=== PATIENT | male | born 1940 | race Caucasian/White ===

== ENCOUNTER 2017-03-29 19:20 | Emergency (ER) | payer OTHER ==
[~2017-03-29] VITALS: Ht 180.3 cm; Wt 92.9 kg
[~2017-03-29 19:20] MED LIST: ASPI-621 PO; CIPR500T87 PO; DAPT500V6 IV; DOCU-131 PO; FINA5TAB4 PO; METO25TA35 PO; OMEG-14 PO; OXYC-306 PO; SIMV40TA3 PO; TAMS-11 PO; TAMS0.4C2 PO
[2017-03-29] MEDS ORDERED: CHOLESTROL MED (20:15)
[2017-03-29] MEDS ORDERED: KETOROLAC 30 MG/1 ML IM ONE (21:00)
[2017-03-29] MEDS ORDERED: KETOROLAC 30 MG/1 ML ONE (21:24)
[2017-03-29 22:48] VITALS: BP 165/84
== END 2017-03-29 22:50 | disposition home or self-care (01) ==
LOC: ED 20:41
DX: S33.5XXA Sprain of ligaments of lumbar spine, initial encounter (principal); S16.1XXA Strain of muscle, fascia and tendon at neck level, initial encounter; Z87.891 Personal history of nicotine dependence; V49.40XA Driver injured in collision with unspecified motor vehicles in traffic accident, initial encounter; Y93.89 Activity, other specified; Y92.488 Other paved roadways as the place of occurrence of the external cause; Y99.8 Other external cause status
CPT/HCPCS: 72110; 72125; 96372; 99284; J1885

== ENCOUNTER → 2018-03-10 | Outpatient (CLI) | payer OTHER ==
[~2018-03-10] MED LIST changes: +CHOLESTROL MED
== END | disposition home or self-care (01) ==
LOC: CFH 12:37
PROVIDERS: ATTEND Nurse Practitioner Family
DX: Z12.2 Encounter for screening for malignant neoplasm of respiratory organs (principal); M51.36 Other intervertebral disc degeneration, lumbar region; M48.061 Spinal stenosis, lumbar region without neurogenic claudication; M48.02 Spinal stenosis, cervical region; K76.89 Other specified diseases of liver; Z87.891 Personal history of nicotine dependence
CPT/HCPCS: 72131; G0297

== ENCOUNTER 2018-08-15 09:41 | Outpatient (CLI) | payer MEDICARE ==
[~2018-08-15 09:41] MED LIST changes: -ASPI-621 PO; +ASPI81TA45 PO
== END 2018-08-15 23:59 | disposition home or self-care (01) ==
LOC: CFH 09:41
PROVIDERS: ATTEND Nurse Practitioner Family
DX: I71.4 Abdominal aortic aneurysm, without rupture (principal); F17.211 Nicotine dependence, cigarettes, in remission
CPT/HCPCS: 76706

== ENCOUNTER → 2019-03-24 | Outpatient (CLI) | payer MEDICARE ==
[~2019-03-24] MED LIST changes: +CYCL5TAB PO; +HYDR-3237 PO; +HYDR-36 PO; +SIMV10TA3 PO; +TESTOSTERONE INJ INJ; +anxiety medication PO
== END | disposition home or self-care (01) ==
LOC: RAD 15:25
PROVIDERS: ATTEND Neurological Surgery
DX: M47.816 Spondylosis without myelopathy or radiculopathy, lumbar region (principal); M48.061 Spinal stenosis, lumbar region without neurogenic claudication
CPT/HCPCS: 72110

== ENCOUNTER → 2019-10-30 | Outpatient (CLI) | payer MEDICARE ==
[~2019-10-30] MED LIST changes: +HYDR-3246 PO; -HYDR-36 PO; +SIMV10TA18 PO; -SIMV10TA3 PO; +SIMV40TA20 PO; -SIMV40TA3 PO
== END | disposition home or self-care (01) ==
LOC: MERGE 11:02 → RAD 11:02
PROVIDERS: ATTEND Neurological Surgery
DX: M47.816 Spondylosis without myelopathy or radiculopathy, lumbar region (principal); M54.5 Low back pain
CPT/HCPCS: 72110

== ENCOUNTER → 2019-12-28 | Outpatient (CLI) | payer MEDICARE | END | disposition home or self-care (01) | LOC: STAR 15:03 | PROVIDERS: ATTEND Anesthesiology | DX: Z02.9 Encounter for administrative examinations, unspecified (principal) ==

== ENCOUNTER 2020-03-08 11:38 | Emergency (ER) | payer MEDICARE ==
[~2020-03-08] VITALS: Ht 180.3 cm; Wt 103.0 kg
--- NOTE | 2020-03-08 12:13 | NUR ---
PT AMBULATED TO RESTROOM WITH STEADY GAIT TO PROVIDE URINE SAMPLE. UA ORDERED PER PROTOCOL AND SENT TO LAB. SON AT BEDSIDE.
[2020-03-08 12:47] LABS: MICROSCOPIC INDICATED
[2020-03-08 13:09] LABS: BASOPHILS % (AUTO) 1 % (0-1); EOSINOPHILS % (AUTO) 0 % (1-7); LYMPHOCYTES % (AUTO) 14 % (22-44); MEAN PLATELET VOLUME 6.9 fL (7.4-10.4); MONOCYTES % (AUTO) 10 % (2-9); NEUTROPHILS % (AUTO) 75 % (42-75); PLATELET COUNT 289 x10^3/uL (130-400); RED BLOOD COUNT 4.91 x10^6/uL (4.38-5.82); RED CELL DISTRIBUTION WIDTH 13.8 % (9.4-14.8)
[2020-03-08 13:10] LABS: MD NO
--- NOTE | 2020-03-08 13:12 | NUR ---
BLADDER SCAN SHOWED ABOUT 70ML IN BLADDER.
[2020-03-08 13:21] LABS: ALANINE AMINOTRANSFERASE 33 U/L (12-78); ALBUMIN 4.1 g/dL (3.4-5.0); ANION GAP 9 mmol/L (5-15); CALCIUM 8.6 mg/dL (8.5-10.1); CHLORIDE 96 mmol/L (98-107); CREATININE 0.98 mg/dL (0.7-1.3)
[2020-03-08 13:23] LABS: ALKALINE PHOSPHATASE 93 U/L (45-117); BILIRUBIN,TOTAL 0.7 mg/dL (0.2-1.0); TOTAL PROTEIN 7.9 g/dL (6.4-8.2)
--- NOTE | 2020-03-08 14:16 | NUR ---
PROVIDER AT BEDSIDE TO UPDATE PT ON POC.
[2020-03-08 14:30] VITALS: BP 136/84
== END 2020-03-08 15:08 | disposition home or self-care (01) ==
LOC: ED 12:38
DX: E87.1 Hypo-osmolality and hyponatremia (principal); R31.9 Hematuria, unspecified; I10 Essential (primary) hypertension; E78.5 Hyperlipidemia, unspecified; E87.5 Hyperkalemia
CPT/HCPCS: 36415; 80053; 81001; 85025; 87086; 99284

== ENCOUNTER 2020-05-22 14:47 | Outpatient (CLI) | payer MEDICARE, OTHER ==
[~2020-05-22 14:47] MED LIST changes: -HYDR-3246 PO; +HYDR-3248 PO; -OXYC-306 PO; +OXYC1TAB17 PO
== END 2020-05-22 23:59 | disposition home or self-care (01) ==
LOC: CFH 14:47
PROVIDERS: ATTEND Family Medicine
DX: Z12.2 Encounter for screening for malignant neoplasm of respiratory organs (principal); Z87.891 Personal history of nicotine dependence; K76.89 Other specified diseases of liver
CPT/HCPCS: 71271

== ENCOUNTER 2020-10-20 10:49 | Inpatient (IN) | payer MEDICARE ==
[~2020-10-20] VITALS: Ht 180.3 cm; Wt 111.5 kg
--- NOTE | 2020-10-20 11:10 | NUR ---
Noted pt ambulating from triage to room with steady gait. Changing into gown after stopping by restroom first.
--- NOTE | 2020-10-20 11:23 | NUR ---
PA and RN assessments completed. Pt placed on continuous EKG/bedside monitoring with call light in reach. Warm blanket offered and declined at this time. Daughter in law at bedside with pt.
[2020-10-20] MEDS ORDERED: LOSA50TA14 PO (11:32)
[2020-10-20] MEDS ORDERED: TEST200V3 IM (11:32)
[2020-10-20] MEDS ORDERED: SIMV20TA19 PO (11:32)
[2020-10-20] MEDS ORDERED: HYDROCHLOROTH12.5 MG PO (11:32)
--- NOTE | 2020-10-20 12:01 | NUR ---
PCXR results reviewed. Awaiting lab results at this time. VS reassessed.
[2020-10-20 12:07] LABS: BASOPHILS % (AUTO) 1 % (0-1); EOSINOPHILS % (AUTO) 0 % (1-7); LYMPHOCYTES % (AUTO) 11 % (22-44); MEAN CORPUSCULAR HEMOGLOBIN 31.7 pg (27.5-34.5); MEAN CORPUSCULAR HGB CONC 33.9 g/dL (33.2-36.2); MEAN PLATELET VOLUME 6.4 fL (7.4-10.4); MONOCYTES % (AUTO) 10 % (2-9); NEUTROPHILS % (AUTO) 78 % (42-75); PLATELET COUNT 305 x10^3/uL (130-400); RED BLOOD COUNT 5.27 x10^6/uL (4.38-5.82); RED CELL DISTRIBUTION WIDTH 14.1 % (9.4-14.8)
[2020-10-20 12:16] LABS: ALANINE AMINOTRANSFERASE 36 U/L (12-78); ALBUMIN 4.3 g/dL (3.4-5.0); ANION GAP 7 mmol/L (5-15); CALCIUM 9.1 mg/dL (8.5-10.1); CHLORIDE 93 mmol/L (98-107); CREATININE 0.94 mg/dL (0.7-1.3)
[2020-10-20 12:21] LABS: ALKALINE PHOSPHATASE 83 U/L (45-117); TOTAL PROTEIN 8.1 g/dL (6.4-8.2); TROPONIN I < 0.015 ng/mL (0.000-0.045)
[2020-10-20] MEDS ORDERED: SODIUM CHLORIDE FLUSH 10ML SYR IVF ONE (13:00)
[2020-10-20] MEDS ORDERED: SODIUM CHLORIDE 0.9% 1,000 ML IV ONE (13:00)
--- NOTE | 2020-10-20 13:27 | NUR ---
Report called to DIAMOND Jones and pt readied for transfer to floor when IV start completed. sleep lab technologist starting IV at this time and noted NS 1 liter bolus ordered. Addendum: 10/20/20 at 1328 by SHELDON NS order reassessed and noted 1 liter at 75mL/hr ordered, not as a bolus.
--- NOTE | 2020-10-20 13:36 | NUR ---
IV site present and benign. IVF started via pump at 75mL/hr as ordered and will be clamped for transport to floor.
[2020-10-20] MEDS ORDERED: morphine SULFATE 10 MG/ML, 1ML IVPush PRN (14:30)
[2020-10-20] MEDS ORDERED: SENNA/DOCUSATE TABLET PO PRN (14:30)
[2020-10-20] MEDS ORDERED: ONDANSETRON 2MG/ML, 2ML IVPush PRN (14:30)
[2020-10-20] MEDS ORDERED: ACETAMINOPHEN 325 MG TABLET PO PRN (14:30)
[2020-10-20] MEDS ORDERED: POLYETHYLENE GLYCOL 17 GM PACKET PO PRN (14:30)
[2020-10-20] MEDS ORDERED: LORazepam 2 MG/ML, 1ML IVPush PRN (14:30)
[2020-10-20] MEDS ORDERED: ONDANSETRON ODT 4 MG PO PRN (14:30)
[2020-10-20] MEDS ORDERED: hydrALAzine 20 MG/ML, 1ML IV PRN (15:00)
[2020-10-20 15:20] LABS: ANION GAP 9 mmol/L (5-15); CHLORIDE 95 mmol/L (98-107); CREATININE 0.81 mg/dL (0.7-1.3)
[2020-10-20 16:18] LABS: MICROSCOPIC NOT IND
[2020-10-20] MEDS ORDERED: OMNIPAQUE 350 MG/ML, 75ML BOTTLE ONE (17:16)
[2020-10-20] MEDS: ENOXAPARIN 40 MG/0.4 ML SQ SCH (17:37)
[2020-10-20 20:11] VITALS: BP 148/80
[2020-10-20] MEDS: SIMVASTATIN 20 MG TABLET PO SCH (21:17)
[2020-10-20] MEDS: LOSARTAN 50MG TABLET PO SCH (21:17)
[2020-10-21 00:48] LABS: ANION GAP 8 mmol/L (5-15); CALCIUM 8.6 mg/dL (8.5-10.1); CHLORIDE 99 mmol/L (98-107); CREATININE 0.84 mg/dL (0.7-1.3)
[2020-10-21 02:28] VITALS: BP 122/61
[2020-10-21] MEDS: ASPIRIN 81 MG TABLET EC PO SCH (05:28)
[2020-10-21 06:12] LABS: BASOPHILS % (AUTO) 1 % (0-1); EOSINOPHILS % (AUTO) 1 % (1-7); LYMPHOCYTES % (AUTO) 17 % (22-44); MEAN CORPUSCULAR HGB CONC 34.4 g/dL (33.2-36.2); MEAN PLATELET VOLUME 6.3 fL (7.4-10.4); MONOCYTES % (AUTO) 13 % (2-9); NEUTROPHILS % (AUTO) 68 % (42-75); PLATELET COUNT 271 x10^3/uL (130-400); RED BLOOD COUNT 5.01 x10^6/uL (4.38-5.82)
[2020-10-21 06:23] LABS: ALANINE AMINOTRANSFERASE 33 U/L (12-78); ALBUMIN 3.8 g/dL (3.4-5.0); ANION GAP 6 mmol/L (5-15); CALCIUM 8.5 mg/dL (8.5-10.1); CHLORIDE 100 mmol/L (98-107); CHOLESTEROL, TOTAL 127 mg/dL (140-239)
[2020-10-21 06:26] LABS: ALKALINE PHOSPHATASE 73 U/L (45-117); BILIRUBIN,TOTAL 0.8 mg/dL (0.2-1.0); CHOL/HDL RATIO 2.4; HDL CHOL % 41 % (26-37); HDL CHOLESTEROL (DIRECT) 52 mg/dL (40-60); LDL CHOLESTEROL,CALCULATED 63 mg/dL (54-169); LDL/HDL RATIO 1.2 (0.5-3.0); TRIGLYCERIDES 62 mg/dL (50-200); VLDL CHOLESTEROL 12 mg/dL (0-25)
[2020-10-21 07:35] VITALS: BP 151/86
[2020-10-21 08:18] LABS: TROPONIN I < 0.015 ng/mL (0.000-0.045)
[2020-10-21] MEDS ORDERED: REGADENOSON 0.4 MG/5 ML SYRINGE ONE (09:09)
[2020-10-21] MEDS: LOSARTAN 50MG TABLET PO SCH ×2 (10:44→20:27)
[2020-10-21] MEDS: HYDROCHLOROTHIAZIDE 12.5 MG CAPSULE PO SCH (10:44)
[2020-10-21 11:52] LABS: ANION GAP 4 mmol/L (5-15); CALCIUM 8.9 mg/dL (8.5-10.1); CHLORIDE 98 mmol/L (98-107)
[2020-10-21] MEDS: HYDROCORTISONE CRM 0.5%, 30GM TP SCH ×2 (12:08→20:28)
[2020-10-21 13:21] VITALS: BP 135/82
[2020-10-21] MEDS: ENOXAPARIN 40 MG/0.4 ML SQ SCH (14:39)
[2020-10-21 18:28] LABS: ANION GAP 8 mmol/L (5-15); CALCIUM 8.5 mg/dL (8.5-10.1); CHLORIDE 98 mmol/L (98-107); CREATININE 0.97 mg/dL (0.7-1.3)
[2020-10-21] MEDS: SODIUM CHLORIDE 0.9% 1,000 ML IV SCH (19:00)
[2020-10-21 19:47] VITALS: BP 145/86
[2020-10-21] MEDS: SIMVASTATIN 20 MG TABLET PO SCH (20:28)
[2020-10-22 01:29] VITALS: BP 141/80
[2020-10-22] MEDS: SODIUM CHLORIDE 0.9% 1,000 ML IV SCH (05:24)
[2020-10-22] MEDS: ASPIRIN 81 MG TABLET EC PO SCH (05:37)
[2020-10-22 05:46] LABS: BASOPHILS % (AUTO) 1 % (0-1); EOSINOPHILS % (AUTO) 2 % (1-7); LYMPHOCYTES % (AUTO) 21 % (22-44); MEAN CORPUSCULAR HEMOGLOBIN 31.9 pg (27.5-34.5); MEAN CORPUSCULAR HGB CONC 33.8 g/dL (33.2-36.2); MEAN PLATELET VOLUME 6.5 fL (7.4-10.4); MONOCYTES % (AUTO) 13 % (2-9); NEUTROPHILS % (AUTO) 64 % (42-75); PLATELET COUNT 256 x10^3/uL (130-400); RED BLOOD COUNT 4.88 x10^6/uL (4.38-5.82); RED CELL DISTRIBUTION WIDTH 14.2 % (9.4-14.8)
[2020-10-22 05:54] LABS: ANION GAP 5 mmol/L (5-15); CALCIUM 8.4 mg/dL (8.5-10.1); CHLORIDE 103 mmol/L (98-107)
[2020-10-22 06:45] VITALS: BP 149/82
[2020-10-22] MEDS ORDERED: AMLO5TAB4 PO (07:31)
[2020-10-22] MEDS: HYDROCHLOROTHIAZIDE 12.5 MG CAPSULE PO SCH (09:02)
[2020-10-22] MEDS: LOSARTAN 50MG TABLET PO SCH (09:02)
[2020-10-22] MEDS: HYDROCORTISONE CRM 0.5%, 30GM TP SCH (09:03)
== END 2020-10-22 12:20 | disposition home or self-care (01) | DRG 309 ==
LOC: ED 11:13 → EDIP 12:57 → 5SO 13:53 → DCLOUNGE 10-22 12:15
PROVIDERS: ADMIT Family Medicine; ATTEND Family Medicine
DX: I49.9 Cardiac arrhythmia, unspecified (principal); E87.1 Hypo-osmolality and hyponatremia; I16.0 Hypertensive urgency; E78.5 Hyperlipidemia, unspecified; F03.90 Unspecified dementia, unspecified severity, without behavioral disturbance, psychotic disturbance, mood disturbance, and anxiety; F12.90 Cannabis use, unspecified, uncomplicated; F40.240 Claustrophobia; F41.1 Generalized anxiety disorder; Z96.653 Presence of artificial knee joint, bilateral; I10 Essential (primary) hypertension; J44.9 Chronic obstructive pulmonary disease, unspecified; N40.0 Benign prostatic hyperplasia without lower urinary tract symptoms; E66.9 Obesity, unspecified; Z68.34 Body mass index [BMI] 34.0-34.9, adult; Z87.891 Personal history of nicotine dependence; Z90.79 Acquired absence of other genital organ(s); Z83.3 Family history of diabetes mellitus; Z82.49 Family history of ischemic heart disease and other diseases of the circulatory system
CPT/HCPCS: 36415; 71045; 71275; 78452; 80048; 80053; 80061; 81003; 83036; 83690; 83735; 83880; 84443; 84484; 85025; 85379; 93005; 93017; 93306; G0378; J1650; J2785; Q9967; A9502; J2060; J7030